=== PATIENT | female | born 2000 | race Caucasian/White ===

== ENCOUNTER 2024-01-29 15:21 | Emergency (ER) | payer SELFPAY ==
[~2024-01-29] VITALS: Ht 157.5 cm; Wt 37.3 kg
[2024-01-29] MEDS ORDERED: AMOXICILLIN 8751 TAB PO (16:09)
[2024-01-29] MEDS ORDERED: Amoxicillin/Clavulanate K+ 875/125 MG TAB PO ONE (16:15)
[2024-01-29] MEDS ORDERED: Home HYDROcodone/Acetaminophen 5/325 MG #4 TABS/PACK PO ONE (16:15)
[2024-01-29 16:24] VITALS: BP 110/68; PULSE 72; TEMP 98
== END 2024-01-29 16:24 | disposition home or self-care (01) ==
LOC: COL.ER 15:21
DX: K05.30 Chronic periodontitis, unspecified (principal); K02.9 Dental caries, unspecified